=== PATIENT | female | born 1970 | race Caucasian/White ===

== ENCOUNTER 2018-08-09 06:48 | Emergency (ER) | payer OTHER ==
--- NOTE | 2018-08-09 09:26 | ED ---
Upper Extremity Pain - HPI Summary HPI Summary: Patient is a [id number] 48-year-old female presenting to the ED with left shoulder pain. She states the pain has been worsening over the past 2 days. She has been moving boxes at home more frequently and she also is a hairdresser as profession. She states she has never had a shoulder injury in the past. She is endorsing 10/10 pain. She is unable to move it at all. She is unable to abduct, adduct, flex or extend at the shoulder. She endorses radiation of pain into the left side of the neck, down the scapula as well as down the arm with intermittent numbness and tingling. Denies any color temperature changes. She states while the area was painful yesterday, she states it was worse this morning. Symptoms are worse with movement and better with rest. She is not used heat for discomfort. She has been using ibuprofen without relief. - History of Current Complaint Chief Complaint: EDShoulderClavicleInj Stated Complaint: POSS DISLOCATED SHOULDER PER PT Time Seen by Provider: 08/09/18 07:00 Hx Obtained From: Patient Hx Last Menstrual Period: Started December 12 Onset/Duration: Started Days Ago Timing: Constant Severity Initially: Severe Severity Currently: Severe Pain Location: Shoulder Character: Aching Aggravating Factor(s): Movement, Lifting, Flexion, Extension, Internal/External Rotation, Abduction, Adduction Alleviating Factor(s): Rest Associated Signs & Symptoms: Negative: Swelling, Redness, Bruising, Numbness/ Tingling, Chest Pain, Diaphoresis, Nausea, Vomiting Related History: Dominant Hand Right - Risk Factors Non-Orthopedic Risk Factor: Negative DVT Risk Factors: Negative Septic Arthritis Risk Factor: Negative Compartment Syndrome Risk Factors: Pain, Paresthesias - Allergies/Home Medications Allergies/Adverse Reactions: Allergies Allergy/AdvReac Type Severity Reaction Status Date / Time MS Gluten Meal [Gluten Meal] Allergy GI Upset Verified 08/09/18 06:52 Home Medications: Home Medications Ascorbic Acid TAB* [Vitamin C TAB*] 500 mg PO BID 08/09/18 [History Confirmed 08/09/18] Cyanocobalamin (Vitamin B-12) [Vitamin B-12] 700 mcg PO DAILY 08/09/18 [History Confirmed 08/09/18] Digestive 8/L.acidoph/Pectin [Digestive Enzymes Tablet] 1 tab PO DAILY 08/09/18 [History Confirmed 08/09/18] Valacyclovir HCl [Valacyclovir] 500 mg PO DAILY 08/09/18 [History Confirmed ] PMH/Surg Hx/FS Hx/Imm Hx Previously Healthy: Yes Endocrine/Hematology History: Denies: Hx Diabetes, Hx Thyroid Disease Cardiovascular History: Denies: Hx Hypertension Respiratory History: Denies: Hx Asthma, Hx Chronic Obstructive Pulmonary Disease (COPD) GI History: Denies: Hx Ulcer, Other GI Disorders - Cancer History Hx Chemotherapy: No Hx Radiation Therapy: No - Surgical History Surgery Procedure, Year, and Place: EAR SURGERIES, DENTAL INPLANTS, COLPOSCOPY, surgical d/t complications Infectious Disease History: Yes Infectious Disease History: Reports: Hx Shingles, Traveled Outside the [place] in Last 30 Days Denies: Hx Hepatitis, Hx Human Immunodeficiency Virus (HIV) - Family History Known Family History: Positive: Hypertension - Social History Occupation: Employed Full-time Lives: With Family Alcohol Use: Occasionally Alcohol Amount: 1-2 glasses per week Hx Substance Use: Yes Substance Use Type: Reports: Marijuana Hx Tobacco Use: Yes Smoking Status (MU): Light Every Day Tobacco Smoker Amount Used/How Often: 8 cigarettes a day Review of Systems Constitutional: Negative Negative: Fever, Chills, Fatigue, Skin Diaphoresis Negative: Palpitations Negative: Shortness Of Breath Genitourinary: Negative Positive: no symptoms reported, see HPI Positive: Arthralgia - left shoulder pain most notably to the L anterior shoulder Skin: Negative Neurological: Negative All Other Systems Reviewed And Are Negative: Yes Physical Exam Triage Information Reviewed: Yes Vital Signs On Initial Exam: Initial Vitals Temp Pulse Resp BP Pulse Ox 98.0 F 93 19 134/92 97 08/09/18 06:49 08/09/18 06:49 08/09/18 06:49 08/09/18 06:49 08/09/18 06:49 Vital Signs Reviewed: Yes Appearance: Positive: Well-Appearing, Well-Nourished Skin: Positive: Warm, Skin Color Reflects Adequate Perfusion Head/Face: Positive: Temporal Artery Tenderness Eyes: Positive: EOMI, Conjunctiva Clear Neck: Positive: Supple Respiratory/Lung Sounds: Positive: Clear to Auscultation, Breath Sounds Present Cardiovascular: Positive: RRR Musculoskeletal: Positive: Pain @ - left shoulder pain most notably to the L anterior shoulder; unable to perform Neer test, and empty can test or Rowley Jordan Neurological: Positive: Sensory/Motor Intact, Alert, Oriented to Person Place, Time Psychiatric: Positive: Affect/Mood Appropriate AVPU Assessment: Alert Diagnostics - Vital Signs Vital Signs Temp Pulse Resp BP Pulse Ox 08/09/18 08:00 80 96 08/09/18 07:54 85 129/70 95 08/09/18 06:49 98.0 F 93 19 134/92 97 - Laboratory Lab Statement: Any lab studies that have been ordered have been reviewed, and results considered in the medical decision making process. Course/Dx - Course Course Of Treatment: On physical exam, patient is endorsing shoulder pain on light palpation. On physical exam, she is unable to abduct, adduct, internally rotate or externally rotate due to pain. She states she feels the area was dislocated and she is unable to move it. She's never injured this area before, however she works as a hairdresser and has been moving boxes recently. This is likely a tendinitis. Discussed this with patient, however an x-ray was obtained. X-ray shows negative for fracture or dislocation. 0.9 cm focus of calcific tendinopathy at the level of the super spinatus tendon at the level of the glenohumeral joint line may reflect less typical proximal location of calcific tendinopathy or potentially calcific tendinopathy, torn retracted tendon. Patient is given sling and is encouraged ibuprofen and Tylenol intermittently every 3 hours. She is given an orthopedic follow-up for 2 days from now. She will use heat to the area. Early immobilization as tolerated. - Diagnoses Differential Diagnosis/HQI/PQRI: Positive: Fracture (Open), Fracture (Closed), Strain, Sprain, Other - tendonopathy, tendon tear, calcific tendinitis, overuse injury Provider Diagnoses: Calcific tendinitis Discharge - Sign-Out/Discharge Documenting (check all that apply): Patient Departure Patient Received Moderate/Deep Sedation with Procedure: No - Discharge Plan Condition: Stable Disposition: HOME Patient Education Materials: Calcific Tendinitis (ED) Referrals: Sarmad Crouch MD [Medical Doctor] - 2 Days Minna Kruger MD [Primary Care Provider] - Additional Instructions: Ibpurofen 600mg four times daily Tylenol 650mg four times daily Moist heat to the area as much as possible Wear sling for comfort, but early immobilization if tolerated is recommended Please follow up with Dr. Crouch - call for an appt on Friday - Billing Disposition and Condition Condition: STABLE Disposition: Home
[2018-08-09] MEDS ORDERED: Ketorolac INJ* 60 MG/2 ML VIAL IM ONE (10:09)
[2018-08-09 10:39] VITALS: BP 122/66
== END 2018-08-09 10:36 | disposition home or self-care (01) ==
LOC: ED 06:48
DX: M65.20 Calcific tendinitis, unspecified site (principal); M25.512 Pain in left shoulder; F17.210 Nicotine dependence, cigarettes, uncomplicated
CPT/HCPCS: 96372; 99282; J1885